=== PATIENT | male | born 1965 | race Caucasian/White ===

== ENCOUNTER 2017-03-13 13:46 | Emergency (ER) | payer SELFPAY ==
[~2017-03-13] VITALS: Ht 177.8 cm; Wt 77.1 kg
[~2017-03-13 13:46] MED LIST: UNOBMED
[2017-03-13 14:00] VITALS: BP 132/81
== END 2017-03-13 14:00 | disposition left against medical advice (07) ==
LOC: EDBD 13:46 → EDUNIT# 13:46 → EMR 14:00
DX: Z45.2 Encounter for adjustment and management of vascular access device (principal); Z53.21 Procedure and treatment not carried out due to patient leaving prior to being seen by health care provider
CPT/HCPCS: 99283